=== PATIENT | female | born 1975 | race Caucasian/White ===

== ENCOUNTER 2016-07-06 20:40 | Emergency (ER) | payer OTHER ==
[~2016-07-06] VITALS: Ht 170.2 cm; Wt 63.5 kg
[~2016-07-06 20:40] MED LIST: LEXA10TA PO; LORA-474 PO; LURA20TA PO; PROM25TA5 PO; TRAM50TA PO
[2016-07-06 21:13] VITALS: BP 120/85; PULSE 110; RESP 20; TEMP 98.6; O2SAT 98
[2016-07-06] MEDS ORDERED: ESTRIDOL (23:06)
--- NOTE | 2016-07-06 23:07 | PD ---
HPI Chief Complaint: Injury Time Seen by Provider: 23:03 Travel History International Travel<30 days: No Contact w/Intl Traveler<30days: No Traveled to known affect area: No History of Present Illness HPI The patient is a 41-year-old female that was jumping on a trampoline at approximately 8 PM when she fell and sustained a laceration to her right lower leg. She denies any other injury. Her last tetanus shot was probably over 10 years. She apparently fell on metal and there are no broken objects or glass around the area and no possibility of foreign body in the wound. PFSH Past Medical History Anxiety: Yes High Cholesterol: Yes Diminished Hearing: No Genitourinary: Yes (ENDOMETRIOSIS, INTERSTITIAL CYSTITIS, PELVIC FLOOR MYALGIA , PELVIC CONGESTI) Inguinal Hernia: Yes (RIGHT, REPAIRED) : 0 Ovarian Cysts: Yes Past Surgical History Appendectomy: Yes Gynecologic Surgery: Yes (ENDOMETRIAL ABLATION) Hysterectomy: Yes Other Surgery: Yes (BLADDER SURGERY, HERNIA REPAIR) Social History Alcohol Use: Yes (OCC) Tobacco Use: Yes (07/08 PPD) Substance Use: No Allergies-Medications (Allergen,Severity, Reaction): Coded Allergies: Penicillin (Verified Allergy, Intermediate, Rash, 07/06/16) Darvocet-N 100 (Verified Adverse Reaction, Intermediate, Rash, 07/06/16) Morphine (Verified Adverse Reaction, Intermediate, Rash, 07/06/16) Nonsteroidal Anti-Inflammatory Agts (Verified Adverse Reaction, Intermediate, stomach pain, 07/06/16) Percocet (Verified Adverse Reaction, Intermediate, Rash, 07/06/16) Reported Meds & Prescriptions Reported Meds & Active Scripts Active Bactrim DS (Sulfamethoxazole-Trimethoprim) 800-160 Mg Tab 1 Tab PO BID Reported [Estridol] Ativan (Lorazepam) 1 Mg Tab 1 Mg PO BID PRN Latuda (Lurasidone) 20 Mg Tab 20 Mg PO HS Lexapro (Escitalopram Oxalate) 10 Mg Tab 10 Mg PO HS Review of Systems Except as stated in HPI: all other systems reviewed are Neg Physical Exam Narrative GENERAL: The patient is alert, oriented 3 in slight apparent distress with her laceration. Her vital signs show heart rate of 110 but are otherwise normal. She does appear somewhat anxious. SKIN: Warm and dry. There is a for similar laceration on the anterior tibial area of the lower leg. There is no bony deformity associated with this laceration. HEAD: Atraumatic. Normocephalic. EYES: Pupils equal and round. No scleral icterus. No injection or drainage. ENT: No nasal bleeding or discharge. Mucous membranes pink and moist. NECK: Trachea midline. No JVD. CARDIOVASCULAR: Regular rate and rhythm. No murmur appreciated. RESPIRATORY: No accessory muscle use. Clear to auscultation. Breath sounds equal bilaterally. GASTROINTESTINAL: Abdomen soft, non-tender, nondistended. Hepatic and splenic margins not palpable. MUSCULOSKELETAL: No obvious deformities. No clubbing. No cyanosis. No edema. NEUROLOGICAL: Awake and alert. No obvious cranial nerve deficits. Motor grossly within normal limits. Normal speech. PSYCHIATRIC: Appropriate mood and affect; insight and judgment normal. Data Data Last Documented VS Vital Signs Date Time Temp Pulse Resp B/P Pulse Ox O2 Delivery O2 Flow Rate FiO2 07/06/16 21:13 98.6 110 20 120/85 98 Orders Lidocai-Epi 1%-1:100,000 Inj (Xylocaine- (07/06/16 23:15) Tetanus/Diphtheria Tox Adult (Tetanus/Di (07/06/16 23:15) Sulfamet-Trimeth Ds 800-160 Mg (Bactrim (07/07/16 00:15) MDM Medical Decision Making Medical Screen Exam Complete: Yes Emergency Medical Condition: Yes Medical Record Reviewed: Yes Differential Diagnosis Laceration lower leg, fracture tibia age unlikely Narrative Course The patient has a laceration of the lower leg. There is no clinical indication for an x-ray at this time because there is no possibility of foreign body or fracture of the lower leg clinically and historically. Procedures Procedure Narrative The skin was prepped with Betadine. The wound edges were infiltrated with lidocaine with epinephrine. Under sterile technique, the laceration was copiously irrigated with saline. The laceration was sewn with 8 stitches of 3- 0 nylon. The laceration length was 4 cm. The patient tolerated the procedure well. Diagnosis Primary Impression: Laceration of left lower extremity Additional Instructions: As we discussed, the stitches come out in 2 weeks. Please keep the wound clean and dry and if you have any problems return immediately to the emergency department. Adding 14 to the third, they can come out around the 17 of this month. Med/Other Pt SpecificInfo: Prescription(s) given Scripts Sulfamethoxazole-Trimethoprim (Bactrim DS)800-160 Mg Tab1 Tab PO BID #20 TAB Ref 0 Prov:Girma Hammonds MD 07/07/16 Disposition: 01 DISCHARGE HOME Condition: Stable Girma Hammonds MD Jul 06, 2016 23:07
[2016-07-06] MEDS ORDERED: LIDOCAINE 1%/EPINEPHrine 1:100,000 SOLN 20 ML VIAL INFIL ONE (23:15)
[2016-07-06] MEDS ORDERED: TETANUS/DIPHTHERIA TOXOID ADULT 0.5 ML VIAL IM ONE (23:15)
[2016-07-07] MEDS ORDERED: BACT800T5 PO (00:11)
[2016-07-07] MEDS ORDERED: SULFAMETHOXAZOLE-TRIMETHOPRIM DS 800-160 MG TAB PO ONE (00:15)
== END 2016-07-07 00:56 | disposition home or self-care (01) ==
LOC: PHED 20:40 → PHEFT 07-07 00:56
DX: S81.812A Laceration without foreign body, left lower leg, initial encounter (principal); W19.XXXA Unspecified fall, initial encounter; Y93.44 Activity, trampolining; Z23 Encounter for immunization
CPT/HCPCS: 12002; 90471; 90714

== ENCOUNTER 2016-07-23 12:11 | Emergency (ER) | payer OTHER ==
[~2016-07-23] VITALS: Ht 170.2 cm; Wt 66.3 kg
[~2016-07-23 12:11] MED LIST changes: +BACT800T5 PO; +ESTRIDOL; -PROM25TA5 PO; -TRAM50TA PO
[2016-07-23 12:13] VITALS: BP 123/75; PULSE 90; RESP 18; TEMP 97.9; O2SAT 100
[2016-07-23] MEDS ORDERED: ESTR1TAB PO (12:28)
--- NOTE | 2016-07-23 12:30 | PD ---
HPI Chief Complaint: Wound/Suture/Staple Re-Check Time Seen by Provider: 12:26 Travel History International Travel<30 days: No Contact w/Intl Traveler<30days: No Traveled to known affect area: No History of Present Illness HPI Patient is a 41-year-old female who presents emergency department to have her stitches removed. Patient had stitches placed on 07/06/16 after she sustained a laceration on a trampoline. Patient is no other complaints at this time. PFSH Past Medical History Anxiety: Yes High Cholesterol: Yes Diminished Hearing: No Genitourinary: Yes (ENDOMETRIOSIS, INTERSTITIAL CYSTITIS, PELVIC FLOOR MYALGIA , PELVIC CONGESTI) Inguinal Hernia: Yes (RIGHT, REPAIRED) ?: Not : 0 Ovarian Cysts: Yes Past Surgical History Appendectomy: Yes Gynecologic Surgery: Yes (ENDOMETRIAL ABLATION) Hysterectomy: Yes Other Surgery: Yes (BLADDER SURGERY, HERNIA REPAIR) Social History Alcohol Use: Yes (OCC) Tobacco Use: Yes (07/08 PPD) Substance Use: No Allergies-Medications (Allergen,Severity, Reaction): Coded Allergies: Penicillin (Verified Allergy, Intermediate, Rash, 07/23/16) Darvocet-N 100 (Verified Adverse Reaction, Intermediate, Rash, 07/23/16) Morphine (Verified Adverse Reaction, Intermediate, Rash, 07/23/16) Nonsteroidal Anti-Inflammatory Agts (Verified Adverse Reaction, Intermediate, stomach pain, 07/23/16) Percocet (Verified Adverse Reaction, Intermediate, Rash, 07/23/16) Reported Meds & Prescriptions Reported Meds & Active Scripts Active Bactrim DS (Sulfamethoxazole-Trimethoprim) 800-160 Mg Tab 1 Tab PO BID Reported [Estridol] Ativan (Lorazepam) 1 Mg Tab 1 Mg PO BID PRN Latuda (Lurasidone) 20 Mg Tab 20 Mg PO HS Lexapro (Escitalopram Oxalate) 10 Mg Tab 10 Mg PO HS Review of Systems Except as stated in HPI: all other systems reviewed are Neg Physical Exam Narrative GENERAL: Well-nourished, well-developed patient. SKIN: Warm and dry. Intact sutures noted to the right marrufo, no erythema, induration, edema, foul odor or drainage noted. Sutures are well approximated. HEAD: Normocephalic. EYES: No scleral icterus. No injection or drainage. NECK: Supple, trachea midline. No JVD or lymphadenopathy. CARDIOVASCULAR: Regular rate and rhythm without murmurs, gallops, or rubs. RESPIRATORY: Breath sounds equal bilaterally. No accessory muscle use. GASTROINTESTINAL: Abdomen soft, non-tender, nondistended. MUSCULOSKELETAL: No cyanosis, or edema. BACK: Nontender without obvious deformity. No CVA tenderness. Data Data Last Documented VS Vital Signs Date Time Temp Pulse Resp B/P Pulse Ox O2 Delivery O2 Flow Rate FiO2 07/23/16 12:13 97.9 90 18 123/75 100 [facility] Medical Decision Making Medical Screen Exam Complete: Yes Emergency Medical Condition: Yes Interpretation(s) Vital Signs Date Time Temp Pulse Resp B/P Pulse Ox O2 Delivery O2 Flow Rate FiO2 07/23/16 12:13 97.9 90 18 123/75 100 Differential Diagnosis Wound infection versus cellulitis versus normal wound healing versus other Narrative Course Patient is a 41-year-old female who presents to the emergency department to have stitches removed. Wound is well healed, sutures are well approximated with no signs or symptoms of infection. There were 8 intact sutures noted they were removed without difficulty. Patient tolerated well. She was advised that she can wash area of water, and resume activity. Patient verbalized understanding of instructions. Patient was encouraged return to urgent department for any new or worsening symptoms. Patient is stable for discharge. Diagnosis Primary Impression: Encounter for removal of sutures Referrals: Primary Care Physician Patient Instructions: General Instructions Additional Instructions: Clean area with soap and water Follow-up with primary doctor Return to emergency department for any new or worsening symptoms Med/Other Pt SpecificInfo: No Change to Meds Disposition: 01 DISCHARGE HOME Condition: Stable Mandie Sabillon Jul 23, 2016 12:29
== END 2016-07-23 12:35 | disposition home or self-care (01) ==
LOC: PHEFT 12:11
DX: Z48.02 Encounter for removal of sutures (principal)
CPT/HCPCS: 99281

== ENCOUNTER 2016-10-07 18:58 | Emergency (ER) | payer OTHER ==
[~2016-10-07] VITALS: Ht 170.2 cm; Wt 67.0 kg
[~2016-10-07 18:58] MED LIST changes: +ESTR1TAB PO; -ESTRIDOL
[2016-10-07 19:24] VITALS: BP 140/85; PULSE 97; RESP 18; TEMP 98; O2SAT 98
[2016-10-07] MEDS ORDERED: PHENAZOPYRIDINE HCL 200 MG TAB PO ONE (19:45)
[2016-10-07] MEDS ORDERED: HYDROmorphone HCL PF 1 MG/ML VIAL IM ONE (19:45)
[2016-10-07 19:59] LABS: BLOOD, URINE SMALL (NEG); GLUCOSE,URINE NEG (NEG); KETONE, URINE NEG (NEG); NITRITE,URINE NEG (NEG); PH, URINE 5.5 (5.0-8.5)
[2016-10-07 20:15] LABS: COMMENT (UR) CULT NOT INDICATED; CULTURE IF INDICATED CULT NOT INDICATED; URINE COLOR STRAW (YELLW/STRAW)
[2016-10-07 20:20] VITALS: BP 120/64; PULSE 82; RESP 18; O2SAT 100
[2016-10-07] MEDS ORDERED: TRAM50TA PO ×2 (20:23→20:47)
[2016-10-07] MEDS ORDERED: EVAM1.532 TOPICAL (20:25)
[2016-10-07] MEDS ORDERED: NITROFURANTOIN MONOHYD MACROCR 100 MG CAP PO ONE (20:45)
[2016-10-07] MEDS ORDERED: PYRI200T4 PO (20:47)
[2016-10-07] MEDS ORDERED: MACR100C2 PO (20:47)
--- NOTE | 2016-10-07 20:47 | PD ---
HPI Chief Complaint: Complaint Time Seen by Provider: 19:37 Travel History International Travel<30 days: No Contact w/Intl Traveler<30days: No Traveled to known affect area: No History of Present Illness HPI 41-year-old female with history of interstitial cystitis, pelvic for muscle spasms, chronic lower abdominal pains, here for evaluation of bladder spasms and lower abdominal discomfort. Symptoms started yesterday, and feels very similar to episodes of interstitial cystitis flares in the past. She states that the pain usually resolves with Dilaudid and Pyridium. History of hysterectomy, bilateral oophorectomy, appendectomy. No fevers. She is having some loose stools. No vomiting. She did notice some blood in her urine earlier today. PFSH Past Medical History Anxiety: Yes High Cholesterol: Yes Diminished Hearing: No Genitourinary: Yes (ENDOMETRIOSIS, INTERSTITIAL CYSTITIS, PELVIC FLOOR MYALGIA , PELVIC CONGESTI) Inguinal Hernia: Yes (RIGHT, REPAIRED) Tetanus Vaccination: < 5 Years Influenza Vaccination: No ?: Unknown : 0 Ovarian Cysts: Yes Past Surgical History Appendectomy: Yes Gynecologic Surgery: Yes (ENDOMETRIAL ABLATION) Hysterectomy: Yes Other Surgery: Yes (BLADDER SURGERY, HERNIA REPAIR) Social History Alcohol Use: Yes (OCC) Tobacco Use: Yes (1/2 PPD) Substance Use: No Allergies-Medications (Allergen,Severity, Reaction): Coded Allergies: Penicillin (Verified Allergy, Intermediate, Rash, 10/07/16) Darvocet-N 100 (Verified Adverse Reaction, Intermediate, Rash, 10/07/16) Morphine (Verified Adverse Reaction, Intermediate, Rash, 10/07/16) Nonsteroidal Anti-Inflammatory Agts (Verified Adverse Reaction, Intermediate, stomach pain, 10/07/16) Percocet (Verified Adverse Reaction, Intermediate, Rash, 10/07/16) Reported Meds & Prescriptions Reported Meds & Active Scripts Active Reported Evamist Topical (Estradiol) 1.53 Mg/[place] 1 [place] TOPICAL DAILY Tramadol (Tramadol HCl) 50 Mg Tab 50 Mg PO Q8H PRN Ativan (Lorazepam) 1 Mg Tab 1 Mg PO BID PRN Latuda (Lurasidone) 20 Mg Tab 20 Mg PO HS Review of Systems Except as stated in HPI: all other systems reviewed are Neg Physical Exam Narrative GENERAL: Well-developed, well-nourished, no acute distress. SKIN: Focused skin assessment warm/dry. HEAD: Atraumatic. Normocephalic. EYES: Pupils equal and round. No scleral icterus. No injection or drainage. ENT: Mucous membranes pink and moist. CARDIOVASCULAR: Regular rate and rhythm. RESPIRATORY: No accessory muscle use. Clear to auscultation. Breath sounds equal bilaterally. GASTROINTESTINAL: Abdomen soft, nondistended. Moderate suprapubic tenderness without peritoneal signs. MUSCULOSKELETAL: No obvious deformities. No clubbing. No cyanosis. No edema. NEUROLOGICAL: Awake and alert. No obvious cranial nerve deficits. Motor grossly within normal limits. Normal speech. PSYCHIATRIC: Appropriate mood and affect; insight and judgment normal. Data Data Last Documented VS Vital Signs Date Time Temp Pulse Resp B/P Pulse Ox O2 Delivery O2 Flow Rate FiO2 10/07/16 20:20 82 18 120/64 100 Room Air 10/07/16 19:24 98.0 Orders Hydromorphone Pf Inj (Dilaudid Pf Inj) (10/07/16 19:45) Phenazopyridine (Pyridium) (10/07/16 19:45) Urinalysis - C+S If Indicated (10/07/16 19:43) Labs Laboratory Tests Test 10/07/16 19:40 Urine Color STRAW Urine Turbidity SLIGHT Urine pH 5.5 Urine Specific [place] 1.007 Urine Protein NEG mg/dL Urine Glucose (UA) NEG mg/dL Urine Ketones NEG mg/dL Urine Occult Blood SMALL Urine Nitrite NEG Urine Bilirubin NEG Urine Leukocyte Esterase NEG Urine RBC 3-5 /hpf Urine WBC 3-5 /hpf Urine Squamous Epithelial 6-8 /hpf Cells Urine Bacteria NONE /hpf Microscopic Urinalysis Comment CULT NOT INDICATED MDM Medical Decision Making Medical Screen Exam Complete: Yes Emergency Medical Condition: Yes Medical Record Reviewed: Yes Differential Diagnosis Interstitial cystitis, UTI, cystitis, nephrolithiasis, diverticulitis, colitis, Narrative Course Vital signs are within normal limits. UA: Small occult blood, 6-8 epithelial cells, negative leukocyte esterase, negative nitrites. The patient was given a dose of IM Dilaudid, oral Pyridium, and is feeling much better. Her abdominal exam is benign. I do not believe she has an acute intra- abdominal process to warrant CT scanning. This was discussed with the patient and she is agreeable. She feels well enough to go home. She will follow-up with her primary care physician in 4 days. She was informed on when to return to the emergency department pitcher verbalizes understanding and agreement with plan. Diagnosis Primary Impression: Interstitial cystitis (chronic) with hematuria Referrals: Primary Care Physician 3 days Additional Instructions: Follow-up with your primary care physician this week. Return to the emergency department for worsening symptoms or any other concerns. Scripts Tramadol 50 Mg Tab50 Mg PO Q6H PRN (PAIN) #10 TAB Ref 0 Prov:Enrique Porter MD 10/07/16 Phenazopyridine (Pyridium)200 Mg Znw215 Mg PO Q8H PRN (DYSURIA) 7 Days Ref 0 Prov:Enrique Porter MD 10/07/16 Nitrofurantoin Monohydrate Macrocrystals (Macrobid)100 Mg Gln430 Mg PO BID 7 Days Ref 0 Prov:Enrique Porter MD 10/07/16 Disposition: 01 DISCHARGE HOME Condition: Stable Enrique Porter MD Oct 07, 2016 20:47
[2016-10-07 20:55] VITALS: RESP 18
[2016-10-07 21:24] VITALS: BP 160/78
== END 2016-10-07 21:25 | disposition home or self-care (01) ==
LOC: PHED 18:58
DX: E78.00 Pure hypercholesterolemia, unspecified (principal); F41.9 Anxiety disorder, unspecified; F17.210 Nicotine dependence, cigarettes, uncomplicated; N30.00 Acute cystitis without hematuria
CPT/HCPCS: 81001; 96372; 99283; J1170

== ENCOUNTER 2017-06-12 13:00 | Emergency (ER) | payer OTHER ==
[~2017-06-12] VITALS: Ht 152.4 cm; Wt 62.0 kg
[~2017-06-12 13:00] MED LIST changes: -BACT800T5 PO; -ESTR1TAB PO; +EVAM1.532 TOPICAL; -LEXA10TA PO; +MACR100C2 PO; +PYRI200T4 PO; +TRAM50TA PO
[2017-06-12 13:13] VITALS: BP 133/60; PULSE 96; RESP 16; TEMP 98.4; O2SAT 97
[2017-06-12] MEDS ORDERED: FIOR30CA PO (13:31)
[2017-06-12] MEDS ORDERED: LEXA20TA PO (13:31)
[2017-06-12] MEDS ORDERED: SIMV20TA PO (13:31)
[2017-06-12 14:00] LABS: BLOOD, URINE MOD (NEG); GLUCOSE,URINE NEG (NEG); KETONE, URINE TRACE mg/dL (NEG); NITRITE,URINE NEG (NEG); PH, URINE 5.5 (5.0-8.5)
--- NOTE | 2017-06-12 14:00 | PD ---
HPI Chief Complaint: Bite or Sting Time Seen by Provider: 13:32 Travel History International Travel<30 days: No Contact w/Intl Traveler<30days: No Traveled to known affect area: No History of Present Illness HPI WHILE CLEANING HER FLOORS SHE SLIPPED AND FELL LIKE 3 TIMES IN ONE SPAN, BECAUSE OF HOW SLIPPERY IT WAS, C/O LEFT KNEE PAIN, BILATERAL ANKLE PAIN WELL. PATIENT STATES SHE CANNOT TAKE ANY NSAIDS BECAUSE OF "INTERSTITIAL CYSTITIS" AND ALSO CANNOT HAVE ANYTHING WITH "CET" AT THE END LIKE PERCOCET/ DARVOCET BECAUSE IT MAKES HER NAUSEOUS BUT SHE CAN HAVE DILAUDID AND LORTAB....I MADE PATIENT AWARE THAT I RESERVE THOSE FOR BROKEN BONES. ADDITIONALLY, PATIENT DURING SAME CLEANUP TRIED TO GRAB HER CAT (SHOTS UP TO DATE) WHO ENDED UP SCRATCHING AND BITING BOTH HER FOREARMS, ABOUT 2 DAYS AGO, NOW SWELLING AND TURNING RED CHART AND RN NOTES REVIEWED PMH REVIEWED ON [employer] NOTED [place] DIAGNOSIS OF HYPERCHOL, ANXIETY, SMOKING/ DRINKING/ PFSH Past Medical History Anxiety: Yes High Cholesterol: Yes Diminished Hearing: No Genitourinary: Yes (ENDOMETRIOSIS, INTERSTITIAL CYSTITIS, PELVIC FLOOR MYALGIA , PELVIC CONGESTI) Inguinal Hernia: Yes (RIGHT, REPAIRED) Immunizations Current: Yes Tetanus Vaccination: < 5 Years Influenza Vaccination: No ?: Not LMP: HYST : 0 Ovarian Cysts: Yes Past Surgical History Appendectomy: Yes Gynecologic Surgery: Yes (ENDOMETRIAL ABLATION) Hysterectomy: Yes Other Surgery: Yes (BLADDER SURGERY, HERNIA REPAIR) Social History Alcohol Use: Yes (OCC) Tobacco Use: Yes (1/2 PPD) Substance Use: No Allergies-Medications (Allergen,Severity, Reaction): Coded Allergies: penicillin G (Unverified Allergy, Intermediate, Rash, 06/12/17) acetaminophen (Unverified Adverse Reaction, Intermediate, Rash, 06/12/17) diclofenac (Unverified Adverse Reaction, Intermediate, stomach pain, ) etodolac (Unverified Adverse Reaction, Intermediate, stomach pain, 06/12/17 ) flurbiprofen (Unverified Adverse Reaction, Intermediate, stomach pain, 06/12/17) ibuprofen (Unverified Adverse Reaction, Intermediate, stomach pain, ) indomethacin (Unverified Adverse Reaction, Intermediate, stomach pain, 06/12/17) ketoprofen (Unverified Adverse Reaction, Intermediate, stomach pain, ) ketorolac (Unverified Adverse Reaction, Intermediate, stomach pain, ) morphine (Unverified Adverse Reaction, Intermediate, Rash, 06/12/17) naproxen (Unverified Adverse Reaction, Intermediate, stomach pain, 06/12/17 ) oxaprozin (Unverified Adverse Reaction, Intermediate, stomach pain, ) oxycodone (Unverified Adverse Reaction, Intermediate, Rash, 06/12/17) propoxyphene (Unverified Adverse Reaction, Intermediate, Rash, 06/12/17) Reported Meds & Prescriptions Reported Meds & Active Scripts Active Hydrocodone-Acetaminophen 10-325 mg Tab 1 Tab PO Q4H PRN Cipro (Ciprofloxacin HCl) 500 Mg Tab 500 Mg PO BID 7 Days Reported Simvastatin 20 Mg Tab 20 Mg PO DAILY Fiorinal with Codeine #3 Cap (Codeine/Butalbital/ASA/Caffein) 30 Mg-50 Mg-325 Mg -40 Mg Capsule 1 Tab PO Q6 Lexapro (Escitalopram Oxalate) 20 Mg Tab 20 Mg PO DAILY Evamist Topical (Estradiol) 1.53 Mg/[place] 1 [place] TOPICAL DAILY Tramadol (Tramadol HCl) 50 Mg Tab 50 Mg PO Q8H PRN Ativan (Lorazepam) 1 Mg Tab 1 Mg PO BID PRN Review of Systems Except as stated in HPI: all other systems reviewed are Neg Musculoskeletal: Positive: Pain (KNEE AND ANKLES) Skin: Positive Lesions (BOTH FOREARMS WITH CAT SCRATCHES AND CAT BITES) Physical Exam Narrative GENERAL: SKIN: Warm and dry....PATIENT HAS CELLULITIC CHANGES ASSOCIATED WITH MULTIPLE SCRATCH TROTTER ON CARTER FOREARMS, NOTED CAT BITE PUNCTURES TO BILATERAL HANDS NEAR DORSAL ASPECT OF THENAR EMINENCE HEAD: Atraumatic. Normocephalic. EYES: Pupils equal and round. No scleral icterus. No injection or drainage. ENT: No nasal bleeding or discharge. Mucous membranes pink and moist. NECK: Trachea midline. No JVD. CARDIOVASCULAR: Regular rate and rhythm. RESPIRATORY: No accessory muscle use. Clear to auscultation. Breath sounds equal bilaterally. GASTROINTESTINAL: Abdomen soft, non-tender, nondistended. Hepatic and splenic margins not palpable. MUSCULOSKELETAL: Extremities without clubbing, cyanosis, or edema. No obvious deformities EXCEPT LEFT KNEE DIFFUSE EDEMA THROUGHOUT AND TTP OVER PATELLA. NO TTP OVER PROX FIBULAR HEAD NOR OVER MEDIAL/LATERAL MALLEOLI BILATERALLY NEUROLOGICAL: Awake and alert. No obvious cranial nerve deficits. Motor grossly within normal limits. Five out of 5 muscle strength in the arms and legs. Normal speech. PSYCHIATRIC: Appropriate mood and affect; insight and judgment normal. Data Data Last Documented VS Vital Signs Date Time Temp Pulse Resp B/P (MAP) Pulse Ox O2 Delivery O2 Flow Rate FiO2 06/12/17 15:27 78 18 143/64 (90) 99 06/12/17 13:13 98.4 Orders Orders Knee, Complete (4vws) (06/12/17 ) Ankle, Complete ([id number]) (06/12/17 ) Ankle, Complete ([id number]) (06/12/17 ) Urinalysis - C+S If Indicated (06/12/17 13:46) Ed Urine Pregnancytest Poc (06/12/17 13:46) Drug Screen, Random Urine (06/12/17 13:46) Crutches (06/12/17 14:29) ^ Knee Immobilizer (06/12/17 14:29) Clindamycin Inj (Cleocin Inj) (06/12/17 14:30) Hydromorphone Pf Inj (Dilaudid Pf Inj) (06/12/17 14:30) Clindamycin Inj (Cleocin Inj) (06/12/17 14:45) Ed Discharge Order (06/12/17 14:36) Immobilizer Knee 20 Inch (06/12/17 ) Labs Laboratory Tests Test 06/12/17 13:55 Urine Collection Type CLEAN CATCH Urine Color YELLOW Urine Turbidity SLIGHTY CLOUDY Urine pH 5.5 Urine Specific [place] 1.025 Urine Protein TRACE mg/dL Urine Glucose (UA) NEG mg/dL Urine Ketones TRACE mg/dL Urine Occult Blood MOD Urine Nitrite NEG Urine Bilirubin NEG Urine Leukocyte Esterase NEG Urine RBC 0-3 /hpf Urine WBC 0-2 /hpf Urine Squamous Epithelial Cells 0-5 /hpf Microscopic Urinalysis Comment CULT NOT INDICATED Urine Opiates Screen POS Urine Barbiturates Screen POS Urine Amphetamines Screen NEG Urine Benzodiazepines Screen POS Urine Cocaine Screen NEG Urine Cannabinoids Screen NEG MDM Medical Decision Making Medical Screen Exam Complete: Yes Emergency Medical Condition: Yes Medical Record Reviewed: Yes Differential Diagnosis PATELLAR/KNEE FX V DISLOCATION V EFFUSION V ANKLE SPRAIN V ANKLE CONTUSIONS V CAT BITE/INFECTED Narrative Course XRAY DID NOT REVEAL ANY FX/DISLOCATION OF ANKLES...KNEE XRAY HOWEVER SHOWED NONDISPLACED PATELLAR FX.....PATIENT WAS GIVEN IM CLINDA, PER PT TETANUS WAS ALREADY UP TO DATE, AND GIVEN PAIN MEDICATION IM, IN ADDITION TO KNEE IMMOBILIZER WITH CRUTCHES. Diagnosis Primary Impression: Cat bite of forearm Qualified Codes: S51.859A - Open bite of unspecified forearm, initial encounter; W55.01XA - Bitten by cat, initial encounter Additional Impression: Patella fracture Qualified Codes: S82.045A - Nondisplaced comminuted fracture of left patella, initial encounter for closed fracture Referrals: Colt Dang MD FOR FURTHER EVALUATION OF YOUR PATELLAR FRACTURE Patient Instructions: Cat Scratch Disease (ED), General Instructions, Patellar Fracture (DC) Scripts Hydrocodone-Acetaminophen (Hydrocodone-Acetaminophen) 10-325 mg Tab 1 TAB PO Q4H Y for PAIN, #14 TAB 0 Refills Prov: Ivan Nela MD 06/12/17 Ciprofloxacin (Cipro) 500 Mg Tab 500 MG PO BID for Infection for 7 Days, #14 TAB 0 Refills Prov: Ivan Neal MD 06/12/17 Disposition: 01 DISCHARGE HOME Condition: Stable Ivan Neal MD Jun 12, 2017 13:59
[2017-06-12 14:01] LABS: METHOD OF COLLECTION CLEAN CATCH
[2017-06-12 14:02] LABS: URINE COLOR YELLOW (YELLW/STRAW)
[2017-06-12 14:04] LABS: COMMENT (UR) CULT NOT INDICATED; CULTURE IF INDICATED CULT NOT INDICATED; RBC, URINE 0-3 /hpf (0-3); SQUAMOUS EPITHELIAL CELL URINE 0-5 /hpf (0-5); WBC, URINE 0-2 /hpf (0-5)
--- NOTE | 2017-06-12 14:24 | RADRPT ---
EXAM DATE/TIME: 06/12/2017 14:01 [facility] COMPARISON: No previous studies available for comparison. INDICATIONS : Left knee pain from fall last night MEDICAL HISTORY : None. SURGICAL HISTORY : Hysterectomy. ENCOUNTER: Initial ACUITY: 1 day PAIN SCORE: 10/10 LOCATION: Left knee FINDINGS: There is a nondisplaced fracture through the body of the patella. The fragments are not . Th ere is no evidence of joint effusion. The rest of the bony structures are grossly intact. There is no joint dislocation. CONCLUSION: Nondisplaced fracture through the body of the patella. Adria Green MD on June 12, 2017 at 14:20 Board Certified Radiologist. This report was verified electronically.
--- NOTE | 2017-06-12 14:25 | RADRPT ---
EXAM DATE/TIME: 06/12/2017 14:07 [facility] COMPARISON: No previous studies available for comparison. INDICATIONS : Left ankle swelling and pain from fall last night MEDICAL HISTORY : None. SURGICAL HISTORY : Hysterectomy. ENCOUNTER: Initial ACUITY: 1 day PAIN SCORE: 2/10 LOCATION: Left ankle FINDINGS: Three view exam was performed of the left ankle. The bony structures are in normal alignment. No ev idence of fracture, dislocation, or soft tissue swelling. The ankle mortise is intact. No radiopaqu e foreign bodies are seen. Bony mineralization is normal. CONCLUSION: Normal examination for a patient of this age. Adria Green MD on June 12, 2017 at 14:23 Board Certified Radiologist. This report was verified electronically.
--- NOTE | 2017-06-12 14:26 | RADRPT ---
EXAM DATE/TIME: 06/12/2017 14:11 [facility] COMPARISON: No previous studies available for comparison. INDICATIONS : Right ankle swelling and pain from fall last night MEDICAL HISTORY : None. SURGICAL HISTORY : Hysterectomy. ENCOUNTER: Initial ACUITY: 1 day PAIN SCORE: 2/10 LOCATION: Right ankle FINDINGS: Three view exam was performed of the right ankle. The bony structures are in normal alignment. No e vidence of fracture, dislocation, or soft tissue swelling. The ankle mortise is intact. No radiopaq ue foreign bodies are seen. Bony mineralization is normal. CONCLUSION: Normal examination for a patient of this age. Adrai Green MD on June 12, 2017 at 14:24 Board Certified Radiologist. This report was verified electronically.
[2017-06-12] MEDS ORDERED: CIPR-9 PO (14:28)
[2017-06-12] MEDS ORDERED: HYDR-3583 PO (14:28)
[2017-06-12] MEDS ORDERED: HYDROmorphone HCL PF 1 MG/ML VIAL IM ONE (14:30)
[2017-06-12] MEDS ORDERED: CLINDAMYCIN PHOS 300 MG/2 ML VIAL IM ONE (14:30)
[2017-06-12] MEDS ORDERED: CLINDAMYCIN PHOS 600 MG/4 ML VIAL IM ONE (14:45)
[2017-06-12 15:27] VITALS: BP 143/64
== END 2017-06-12 15:45 | disposition home or self-care (01) ==
LOC: PHED 13:00
DX: S51.859A Open bite of unspecified forearm, initial encounter (principal); S82.045A Nondisplaced comminuted fracture of left patella, initial encounter for closed fracture; M25.571 Pain in right ankle and joints of right foot; M25.572 Pain in left ankle and joints of left foot; R23.8 Other skin changes; E78.00 Pure hypercholesterolemia, unspecified; F17.200 Nicotine dependence, unspecified, uncomplicated; W55.01XA Bitten by cat, initial encounter; W55.03XA Scratched by cat, initial encounter; W01.0XXA Fall on same level from slipping, tripping and stumbling without subsequent striking against object, initial encounter; Y93.E5 Activity, floor mopping and cleaning; Z79.899 Other long term (current) drug therapy; Z87.448 Personal history of other diseases of urinary system; Z72.89 Other problems related to lifestyle
CPT/HCPCS: 73564; 73610; 80307; 81001; 96372; 99284; E0113; J1170; L1830